=== PATIENT | female | born 1990 | race Asian ===

== ENCOUNTER 2019-09-20 19:17 | Emergency (ER) | payer OTHER ==
[~2019-09-20] VITALS: Ht 162.6 cm; Wt 139.3 kg
[2019-09-20 21:35] VITALS: BP 128/88; TEMP 98.3
== END 2019-09-20 21:35 | disposition home or self-care (01) ==
LOC: ED 19:17
DX: S93.492A Sprain of other ligament of left ankle, initial encounter (principal); S83.8X2A Sprain of other specified parts of left knee, initial encounter; E66.8 Other obesity
CPT/HCPCS: 36415; 84550; 99283

== ENCOUNTER 2021-01-29 12:53 | Emergency (ER) | payer OTHER ==
[~2021-01-29] VITALS: Ht 162.6 cm; Wt 117.9 kg
[2021-01-29 13:00] VITALS: BP 139/73; TEMP 97.9
[2021-01-29 13:50] LABS: PLATELET COUNT 263 K/uL (152-353)
[2021-01-29 13:57] LABS: POTASSIUM 3.6 mmol/L (3.6-5.2)
== END 2021-01-29 14:56 | disposition home or self-care (01) ==
LOC: ED 12:53
PROVIDERS: Emergency Medicine Emergency Medical Services
DX: G44.209 Tension-type headache, unspecified, not intractable (principal)
CPT/HCPCS: 80053; 85027; 96360; 96374; 96375; 99284; J1885; J2405; Q9963

== ENCOUNTER 2023-02-21 01:28 | Emergency (ER) | payer OTHER ==
[~2023-02-21] VITALS: Ht 162.6 cm; Wt 129.3 kg
[2023-02-21 01:30] VITALS: TEMP 97.1
[2023-02-21 02:45] VITALS: BP 110/77
== END 2023-02-21 02:45 | disposition home or self-care (01) ==
LOC: ED 01:28
DX: S06.0X0A Concussion without loss of consciousness, initial encounter (principal); S00.03XA Contusion of scalp, initial encounter; W19.XXXA Unspecified fall, initial encounter
CPT/HCPCS: 81025; 99282

== ENCOUNTER 2023-05-03 15:04 | Emergency (ER) | payer OTHER ==
[~2023-05-03] VITALS: Ht 162.6 cm; Wt 122.5 kg
[2023-05-03 15:10] VITALS: BP 142/92; TEMP 99.6
[2023-05-03 15:45] LABS: PLATELET COUNT 225 K/uL (152-353)
== END 2023-05-03 17:05 | disposition home or self-care (01) ==
LOC: ED 15:04
PROVIDERS: Family Medicine
DX: U07.1 COVID-19 (principal); D72.819 Decreased white blood cell count, unspecified; R50.9 Fever, unspecified; R05.9 Cough, unspecified; I10 Essential (primary) hypertension; E66.9 Obesity, unspecified
CPT/HCPCS: 85027; 87502; 87635; 87651; 99283; U0003